=== PATIENT | male | born 1985 | race Caucasian/White ===

== ENCOUNTER 2017-03-08 20:50 | Emergency (ER) | payer OTHER ==
[~2017-03-08] VITALS: Ht 188 cm; Wt 105.0 kg
[2017-03-08 20:52] VITALS: TEMP 36.8; Ht 188 cm; Wt 105.0 kg
[2017-03-08] MEDS ORDERED: CYCL10TA6 PO (21:05)
[2017-03-08] MEDS ORDERED: DIAZEPAM 5MG TAB PO STA (21:15)
--- NOTE | 2017-03-08 21:22 | EMERGENCY ROOM VISIT NOTE ---
History First contact with patient: 20:58 Chief Complaint: BACK PAIN Stated Complaint: BACK PAIN History of Present Illness The patient is a 31 year old male who presents to the Emergency Room with complaints of right-sided back pain which began when he was lifting heavy objects today. The patient reports a long history of back problems and states this feels similar to back pain he has had in the past. The pain is located to the right of the spine. He states the pain is worse when he is sitting or lying down and with certain movements. The patient has seen pain management and chiropractors in the past and has received physical therapy and had injections into the back previously. He has had previous x-rays and MRIs. He was seen at the [facility] emergency department today and states that they "didn't do anything" for him. He reports they gave him a prescription for Flexeril and gave him an injection but would not tell him what the medication was. He denies any radiation of the pain into the legs. He denies any numbness/ weakness of the lower extremities. He denies any urinary symptoms or incontinence. He rates his discomfort a 10/10. He states he has been taking the Flexeril without any relief. Review of Systems A complete 10 point review of systems was reviewed with the patient with pertinent positives and negatives as per history of present illness. All else were negative. Social History Smoking Status: Current Every Day Smoker Current/Historical Medications Scheduled PRN Cyclobenzaprine Hcl (Flexeril), 10 MG PO Q8 PRN for Muscle Spasms Physical Exam Vital Signs Date Time Temp Pulse Resp B/P (MAP) Pulse Ox O2 Delivery O2 Flow Rate FiO2 03/08/17 22:03 81 18 134/76 98 Room Air 03/08/17 20:52 36.8 106 18 123/81 99 Room Air Physical Exam VITALS: Vitals are noted on the nurse's note and reviewed by myself. Vital signs stable. GENERAL: This is a 31-year-old male, in no acute distress, nondiaphoretic, well- developed well-nourished. HEART: Regular rate and rhythm without murmurs gallops or rubs. LUNGS: Clear to auscultation bilaterally without wheezes, rales or rhonchi. ABDOMEN: No tenderness to palpation. MUSCULOSKELETAL: There is tenderness to the right lumbar paraspinous muscles with a small palpable spasm. No tenderness over the spinous processes. Full range of motion and strength 5/5 in bilateral lower extremities. NEURO: Patient was alert and oriented to person place and time. Normal sensation to light and sharp touch. Patellar reflexes 2+ bilaterally. Medical Decision & Procedures Medications Administered Medications (Trade) Dose Ordered Sig/Zachary Route Start Time Stop Time Status Last Admin Dose Admin Diazepam (Valium Tab) 5 mg NOW STAT PO 03/08/17 21:15 03/08/17 21:18 DC 03/08/17 21:23 5 MG ED Course The patient was evaluated as above. Patient was medicated with 5 mg of Valium by mouth. Patient was reevaluated and states he has had no relief. Treatment plan was discussed with the patient. Discharge instructions were reviewed with the patient. The patient verbalized understanding of my assessment and treatment plan and was discharged home in good condition. Medical Decision Differential diagnosis includes cauda equina syndrome, cord compression, disc herniation, muscle spasm, lumbar strain, epidural abscess, malignancy, transverse myelitis, urinary tract infection, colitis, diverticulitis, kidney stone, among others. The patient was evaluated as above. He presents with left-sided back pain which appears to be musculoskeletal. He has had issues with chronic back pain and has had extensive workup for this in the past. There is no evidence of a cauda equina syndrome or cord compression. He was treated with Valium without relief. I do not feel narcotics are indicated. He is advised to take anti- inflammatories at home. Conservative measures were discussed. He will follow up with his primary care provider and pain management as needed. He verbalized understanding of my assessment and treatment plan and was discharged home in good condition. Medication Reconcilliation Current Medication List: was personally reviewed by me Blood Pressure Screening Patient's blood pressure: Normal blood pressure Impression Primary Impression: Strain of lumbar region Departure Information Dispostion Home / Self-Care Condition GOOD Referrals No Doctor, Assigned (PCP) Patient Instructions My [facility] Additional Instructions You have been treated in the Emergency Department for Back Pain. You have received medicine in the emergency department which impairs your ability to operate a vehicle. It is illegal for you to drive after receiving these medicines. For pain control, you can use the following [id number] medicines (if >12 yo): - Regular strength (325mg/tab) Tylenol (acetaminophen) 2 tabs every 4-6 hours as needed. Do not exceed 12 tablets in a 24 hour period. Avoid taking more than 4 grams (4000 mg) of Tylenol per day. This includes any other sources of acetaminophen you may take on a regular basis. Ibuprofen, 800 mg every 6 hours. Apply heating pad to the back for soothing relief. You should schedule a follow-up appointment in 2-3 days with your Primary Care Provider for further evaluation and treatment of your back pain. Return to the Emergency Department if your current symptoms worsen despite treatment course outlined above, or if you develop any of the following symptoms : intractable pain despite aforementioned treatment course, loss of control of your bowel or bladder, numbness or tingling in your groin, or development of a fever. Problem Qualifiers Primary Impression: Strain of lumbar region Encounter type: initial encounter Qualified Codes: S39.012A - Strain of muscle, fascia and tendon of lower back, initial encounter
[2017-03-08 22:03] VITALS: BP 134/76; PULSE 81; O2SAT 98
== END 2017-03-08 22:05 | disposition home or self-care (01) ==
LOC: C.EDB 20:51 → C.EDD 22:05
DX: S39.012A Strain of muscle, fascia and tendon of lower back, initial encounter (principal); X50.0XXA Overexertion from strenuous movement or load, initial encounter; F17.200 Nicotine dependence, unspecified, uncomplicated

== ENCOUNTER 2017-06-01 07:14 | Emergency (ER) | payer BC, OTHER ==
[~2017-06-01] VITALS: Ht 188 cm; Wt 104.5 kg
[~2017-06-01 07:14] MED LIST: CYCL10TA6 PO
[2017-06-01 07:15] VITALS: BP 117/75; PULSE 89; TEMP 36.4; O2SAT 98; Ht 188 cm; Wt 104.5 kg
[2017-06-01] MEDS ORDERED: METH4PAK PO (07:40)
[2017-06-01] MEDS ORDERED: TRAM-10 PO (07:40)
[2017-06-01] MEDS ORDERED: DEXAMETHASONE SOD INJ 4 MG/ML 5 ML VIAL IM STA (07:42)
[2017-06-01] MEDS ORDERED: KETOROLAC TROMETHAMINE 60 MG/2 ML VIAL IM STA (07:42)
[2017-06-01] MEDS ORDERED: DEXAMETHASONE **PF** INJ 10 MG/ML VIAL ONE (07:50)
--- NOTE | 2017-06-01 16:48 | EMERGENCY ROOM VISIT NOTE ---
History First contact with patient: 07:19 Chief Complaint: NECK PAIN Stated Complaint: NECK SHOULDER PAIN History of Present Illness The patient is a 31 year old male who presents to the Emergency Room with complaints of neck and left shoulder pain. The patient reports a history of chronic lower back pain, and knows that he also has neck problems as well. He reports having a football injury to the neck as a freshman in high school. The patient reports that since yesterday, he is had worsening pain. The pain is worse when he looks to the right, causing pain that radiates to the left scapular region. It does not radiate to the chest or down the left arm. He has not noticed any recent weakness of the left hand. The patient is right-hand -dominant. He did try ibuprofen without relief of his pain, and rates his discomfort a 9 out of 10. The patient is usually a stomach or side sleeper. Review of Systems 10 system review was performed and was negative except for pertinent positives and negatives as indicated in history of present illness Past Medical/Surgical History Medical Problems: (1) Chronic back pain (2) Degenerative disc disease, cervical (3) Lumbar degenerative disc disease (4) Tobacco use disorder Surgical Problems: (1) Status post epidural steroid injection Family History Unremarkable Social History Smoking Status: Current Every Day Smoker Alcohol Use: occasionally Marital Status: single Occupation Status: employed Current/Historical Medications Scheduled Methylprednisolone (Medrol Dosepak), 0 PO DAILY Scheduled PRN Cyclobenzaprine Hcl (Flexeril), 10 MG PO Q8 PRN for Muscle Spasms Tramadol (Ultram), 1-2 TAB PO Q4H PRN for Pain Physical Exam Vital Signs Date Time Temp Pulse Resp B/P (MAP) Pulse Ox O2 Delivery O2 Flow Rate FiO2 06/01/17 07:15 36.4 89 18 117/75 98 Room Air Physical Exam CONSTITUTIONAL: Healthy and well nourished. Alert and oriented X 3 with positive affect. HEENT: Normocephalic, atraumatic. Pupils equal, round and reactive. NECK: Full active range of motion without discomfort. RESPIRATORY: Clear to auscultation bilaterally with no wheezing, crackles, rhonchi or stridor. CARDIOVASCULAR: Regular rate and rhythm with no murmurs, rubs or gallops. GASTROINTESTINAL: Bowel sounds present in all quadrants. MUSCULOSKELETAL: Full range of motion of all joints without discomfort. INTEGUMENTARY: No rash or other significant dermatologic conditions noted. NEUROLOGIC: Cranial nerves II-XII grossly intact. No focal neurologic deficits noted. Medical Decision & Procedures Medications Administered Medications (Trade) Dose Ordered Sig/Zachary Route Start Time Stop Time Status Last Admin Dose Admin Ketorolac Tromethamine (Toradol Inj) 60 mg NOW STAT IM 06/01/17 07:42 06/01/17 07:43 DC 06/01/17 07:53 60 MG Dexamethasone Sodium Phosphate (Dexamethasone Inj Pf) 10 mg STK-MED ONCE .ROUTE 06/01/17 07:50 06/01/17 07:51 DC 06/01/17 07:54 10 MG ED Course Patient history and physical exam were performed. Nurse's notes were reviewed. Vital signs were reviewed and were normal. The patient was administered IM Toradol and Decadron. The patient was provided additional prescriptions for a Medrol Dosepak and tramadol. He was encouraged to also alternate ibuprofen and Tylenol for baseline pain relief. The patient was encouraged to follow-up with his PCP as needed for any persistent symptoms. The patient was happy with plan of care, voiced understanding of all discharge instructions, and rated his pain a 6 out of 10 at the conclusion of my exam. Medical Decision Muscular strain and cervical radiculitis were considered. The patient does appear to have worsening of the discomfort with sleep position, making this a more radicular symptom. I do not suspect meningitis, soft tissue infection, carotid stenosis or cardiopulmonary referred pain. [facility] Drug Monitoring Program Search Results: patient reviewed within database, no issues identified Medication Reconcilliation Current Medication List: was personally reviewed by me Blood Pressure Screening Patient's blood pressure: Normal blood pressure Impression Primary Impression: Left cervical radiculopathy Departure Information Dispostion Home / Self-Care Prescriptions Tramadol (Ultram) 50 Mg Tab 1-2 TAB PO Q4H Y for Pain, #30 TAB For Initial Treatment Prov: David Baker PA 06/01/17 Methylprednisolone (MEDROL DOSEPAK) 4 Mg Bertin 0 PO DAILY, #1 PKT Prov: David Baker PA 06/01/17 Referrals Gonzalo Mata D.O. (PCP) No Doctor, Assigned Forms HOME CARE DOCUMENTATION FORM, IMPORTANT VISIT INFORMATION Patient Instructions Radiculopathy Cervical, My [facility] Additional Instructions Intermittently apply ice to base of the neck. Try to sleep on your back, or in positions as discussed with you. Ibuprofen 800 mg and/or Tylenol 1000 mg every 8 hours. You may also alternate these medications for more effective pain relief: Ibuprofen --4 HRS--> Tylenol --4 HRS--> ibuprofen --4 HRS--> Tylenol .... Ultram if needed for worse pain. Take Medrol Dosepak as prescribed - next dose tomorrow morning. Follow-up with your family doctor for further management.
== END 2017-06-01 07:58 | disposition home or self-care (01) ==
LOC: C.EDB 07:15
DX: M54.12 Radiculopathy, cervical region (principal); F17.210 Nicotine dependence, cigarettes, uncomplicated